=== PATIENT | male | born 1940 | race Hispanic/Latino ===

== ENCOUNTER 2018-07-01 07:33 | Observation (INO) | payer MEDICARE ==
--- NOTE | 2018-06-23 15:33 | Diagnostic Imaging Report ---
PROCEDURE: X-RAY CHEST, TWO VIEWS COMPARISON: None. INDICATIONS: PRE OPERATIVE CHEST X-RAY FOR PENIS PUMP FINDINGS: LUNGS: No consolidations or edema. The diaphragms are flattened suggestive of small airways disease. PLEURA: No effusions or pneumothorax. HEART \T\ MEDIASTINUM: The heart is within normal size-limits. Coronary artery stent is present. Aortic arch is mildly ectatic. A small hiatal hernia is suspected. BONES \T\ SOFT TISSUES: No acute findings. Degenerative changes throughout the spine. No compression fractures. CONCLUSION: No acute cardiopulmonary process. Dictated by: Mendez Almeida M.D. on 06/23/2018 at 15:39 Electronically approved by: Mendez Almeida M.D. on 06/23/2018 at 15:39
[2018-06-23 15:54] LABS: BASOPHILS # (AUTO) 0.1 (0.0-0.1); BASOPHILS % 0.7 % (0.0-1.0); EOSINOPHILS # (AUTO) 0.6 (0.0-0.4); EOSINOPHILS % 8.7 % (0.0-6.0); HEMATOCRIT 38.5 % (38.2-49.6); HEMOGLOBIN 12.4 g/dL (14.0-18.0); LYMPHOCYTES # (AUTO) 1.9 (1.0-3.2); LYMPHOCYTES % 26.3 % (18.0-39.1); MEAN CORPUSCULAR HEMOGLOBIN 31.1 pg (28-32); MEAN CORPUSCULAR HGB CONC 32.2 g/dL (31-35); MEAN CORPUSCULAR VOLUME 96.5 fL (81-99); MONOCYTES # (AUTO) 0.8 (0.2-0.8); MONOCYTES % 11.3 % (4.4-11.3); NEUTROPHILS # (AUTO) 3.8 (2.1-6.9); NEUTROPHILS % 52.9 % (38.7-80.0); PLATELET COUNT 199 x10e3/uL (140-360); RED BLOOD COUNT 3.99 x10e6/uL (4.3-5.7); RED CELL DISTRIBUTION WIDTH 12.7 % (11.7-14.4)
[2018-06-23 16:09] LABS: ANION GAP 13.4 mmol/L (8-16); BLOOD UREA NITROGEN 15 mg/dL (7-26); BUN/CREATININE RATIO 16 (6-25); CALCIUM 9.3 mg/dL (8.4-10.2); CARBON DIOXIDE 25 mmol/L (22-29); CHLORIDE 106 mmol/L (98-107); CREATININE, SERUM 0.96 mg/dL (0.72-1.25); EST GLOMERULAR FILTRATION RATE > 60 ML/MIN (60-); GLUCOSE 98 mg/dL (74-118); POTASSIUM 4.4 mmol/L (3.5-5.1); SODIUM 140 mmol/L (136-145)
[2018-07-01] VITALS (7 sets, daily range): BP systolic 130–174; BP diastolic 57–77
[~2018-07-01] VITALS: Ht 162.6 cm; Wt 74.4 kg
[~2018-07-01 07:33] MED LIST: ASPIR 8181 MG PO; FINASTERIDE5 MG PO; FLOMAX0.4 MG PO; LORATADINE10 MG PO; LOSARTAN POTAS100 MG PO; MELOXICAM7.5 MG PO; METOPROLOL TART25 MG PO; MONTELUKAST SOD10 MG PO; PANTOPRAZOLE SO40 MG PO; PLAVIX75 MG PO; SIMVASTATIN40 MG PO; TRAZODONE HCL50 MG PO; TRIAMCINOLONE A15 G1 TOP; ULTRAM 50MG50 MG PO; VALACYCLOVIR500 MG PO; VIAGRA50 MG PO
[2018-07-01] MEDS ORDERED: CEFTRIAXONE SOD 1 GM VIAL ONE (08:25)
[2018-07-01] MEDS ORDERED: LIDOCAINE HCL 1% LOCAL INJ 20 ML VIAL ONE (09:23)
[2018-07-01] MEDS ORDERED: BACITRACIN 50,000 UNIT VIAL ONE (09:24)
[2018-07-01] MEDS ORDERED: FENTANYL CITRATE/PF 100MCG/2 ML INJ ONE ×2 (12:19→17:58)
[2018-07-01] MEDS ORDERED: MORPHINE SULFATE 2 MG/ML SYR ONE (14:09)
[2018-07-01] MEDS ORDERED: SILDENAFIL CITRATE 50 MG PO PRN (15:45)
[2018-07-01] MEDS ORDERED: TRAMADOL HCL 50 MG TAB PO PRN (15:45)
[2018-07-01] MEDS ORDERED: LEVOFLOXACIN 500 MG TAB PO SCH (16:15)
[2018-07-01] MEDS: METOPROLOL TARTRATE 25 MG TAB PO SCH (16:46)
[2018-07-01] MEDS: LOSARTAN POTASSIUM 100 MG TAB PO SCH (17:05)
[2018-07-01] MEDS: ACETAMINOPHEN/CODEINE 300MG - 30MG TAB PO PRN (17:06)
[2018-07-01] MEDS ORDERED: PROPOFOL IV EMULSION 10 MG/ML 20 ML VIAL ONE (17:45)
[2018-07-01] MEDS ORDERED: ATROPINE SULFATE 1 MG/ML VIAL ONE (17:45)
[2018-07-01] MEDS ORDERED: LIDOCAINE HCL 2% LOCAL INJ 5 ML SDV VIAL INJ ONE (17:45)
[2018-07-01] MEDS ORDERED: DEXAMETHASONE SOD PHOS INJ 4 MG/ML VIAL ONE (17:45)
[2018-07-01] MEDS ORDERED: ONDANSETRON HCL INJ 2 MG/ML VIAL ONE (17:45)
[2018-07-01] MEDS ORDERED: SEVOFLURANE INHAL SOLN 250 ML PEN BTL ONE (17:45)
[2018-07-01] MEDS ORDERED: KETOROLAC TROMETHAMINE 30 MG/ML VIAL ONE (17:45)
[2018-07-01] MEDS ORDERED: MIDAZOLAM HCL 2 MG/2 ML VIAL ONE (17:58)
[2018-07-01] MEDS ORDERED: SIMVASTATIN 40 MG TAB PO SCH (21:00)
[2018-07-01] MEDS ORDERED: TRAZODONE HCL 50 MG TAB PO SCH (21:00)
[2018-07-02] MEDS: ACETAMINOPHEN/CODEINE 300MG - 30MG TAB PO PRN (01:33)
[2018-07-02 05:15] VITALS: BP 138/61
[2018-07-02 07:51] VITALS: BP 144/62
[2018-07-02 08:08] VITALS: BP 144/62
[2018-07-02] MEDS: LOSARTAN POTASSIUM 100 MG TAB PO SCH (08:44)
[2018-07-02] MEDS: METOPROLOL TARTRATE 25 MG TAB PO SCH (08:45)
[2018-07-02] MEDS ORDERED: TAMSULOSIN HCL 0.4 MG CAP PO SCH (09:00)
[2018-07-02] MEDS ORDERED: PANTOPRAZOLE SOD 40 MG TABEC PO SCH (09:00)
[2018-07-02] MEDS ORDERED: FINASTERIDE 5 MG TAB PO SCH (09:00)
[2018-07-02] MEDS ORDERED: LORATADINE 10 MG TAB PO SCH (09:00)
[2018-07-02] MEDS ORDERED: MELOXICAM 7.5 MG TAB PO SCH (09:00)
[2018-07-02] MEDS ORDERED: MONTELUKAST SODIUM 10 MG TAB PO SCH (09:00)
--- NOTE | 2018-08-03 09:03 | Operative Report ---
DATE OF PROCEDURE: July 01, 2018 PREOPERATIVE DIAGNOSIS: Organic erectile dysfunction. POSTOPERATIVE DIAGNOSIS: Organic erectile dysfunction. OPERATIVE PROCEDURE PERFORMED: Placement of inflatable penile prosthesis. ANESTHESIA: General anesthesia. ESTIMATED BLOOD LOSS: Minimal. INDICATIONS: Mr. Philip is a 77-year-old gentleman with a long history of erectile dysfunction, which has failed conservative management. He now presents for definitive surgical management of this problem. OPERATIVE PROCEDURE IN DETAIL: Patient was brought to the operating room and placed in the supine position. After administration of general anesthesia, was prepped and draped in the usual sterile fashion. A Pizarro catheter was placed. The balloon inflated. A penoscrotal incision was made sharply, and dissection was carried out through the layers of the penis. The left corporal body was entered first. Corporal body was dilated proximally and distally. The corporal body measured 22 cm in total length. The corporal body was then entered sharply, and also dilated proximally and distally and measured a total of 21 cm in length. The decision was made to place an 18 cm CX cylinder with 3-cm RTE. This was placed without difficulty. The corporal incisions were reapproximated and closed using PDS suture. Great care was taken to prevent injury to the prosthetic device. A separate incision was made in the right groin. Dissection was carried out to the layers of the rectus fascia. A horizontal incision was made over the rectus fascia. A subrectus pouch was created. This was infiltrated with 0.25% Marcaine. The reservoir was placed in this location and filled with 65 mL of fluid. The fascial incision was reapproximated and closed with running Vicryl suture. The tubing from the scrotum was brought up into the groin using the standard knitting needle and Quick-Connect method was used to connect the reservoir to the pump. The device was cycled on the table with good inflation and dessufflation appreciated. The device was left partially inflated to aid with hemostasis. Both wounds were copiously irrigated with antibiotic solution and reapproximated and closed in layers. The skin being closed using a running Monocryl suture. The wounds were then cleaned and dried, and covered with Mastisol, Steri-Strips and a Tegaderm dressing. Anesthesia was reversed and the catheter was removed. The patient was transferred to a bed and taken to the postanesthesia care unit in good condition. Of note, the needle and instrument counts were correct at the conclusion of the case. Job#: [id number]
--- OUTSIDE RECORDS SUMMARY | 2018-08-05 05:10 | XMS REPORT ---
Author Author [facility] Address Unknown Phone Unavailable Care Team Providers Care Labor Contract Analyst Name Role Phone THONY ALFONSO Unavailable Unavailable Problems This patient has no known problems. Allergies, Adverse Reactions, Alerts This patient has no known allergies or adverse reactions. Medications This patient has no known medications. Results Test Description Test Time Test Comments Text Results Atomic Results Result Comments CHEST 2 VIEWS 2018-06-23 15:39:00 [place] [address] Patient Name: MARAH TRUONG MR #: [id number] : 1940 Age/Sex: 77/M Req #: [id number] Adm Physician: Ordered by: THONY ALFONSO MD Report #: [id number] Location: OR Room/Bed: ___ Procedure: [id number] DX/CHEST 2 VIEWS Exam Date: 06/23/18 Exam Time: 1500 REPORT STATUS: Signed PROCEDURE: X-RAY CHEST, TWO VIEWS COMPARISON: None. INDICATIONS: PRE OPERATIVE CHEST X-RAY FOR PENIS PUMP FINDINGS: LUNGS: No consolidations or edema. The diaphragms are flattened suggestive of small airways disease. PLEURA : No effusions or pneumothorax. HEART T MEDIASTINUM: The heart is within normal size-limits. Coronary artery stent is present. Aortic arch is mildly ectatic. A small hiatal hernia is suspected. BONES T SOFT TISSUES: No acute findings. Degenerative changes throughout the spine. No compression fractures. CONCLUSION: No acute cardiopulmonary process. Dictated by: Mary Guerrero M.D. on 06/23/2018 at 15:39 Electronically approved by: Mary Guerrero M.D. on 06/23/2018 at 15:39 Dictated By: MARY GUERRERO MD [id number] Transcribed By: TIFFANIE on 06/23/18 1539 COPY TO: THONY ALFONSO MD
== END 2018-07-02 09:38 | disposition home or self-care (01) ==
LOC: OR 07:33 → PACU V 15:13 → IMCU 15:40
PROVIDERS: ADMIT Urology; ATTEND Urology
DX: N52.9 Male erectile dysfunction, unspecified (principal); N40.1 Benign prostatic hyperplasia with lower urinary tract symptoms; I25.10 Atherosclerotic heart disease of native coronary artery without angina pectoris; I10 Essential (primary) hypertension
CPT/HCPCS: 36415; 54401; 71046; 80048; 85025; 93005; C1813 ×2; G0378 ×2; J0461; J0696; J1100; J1885; J2001 ×2; J2250; J2270; J2405; S0164